=== PATIENT | male | born 1995 | race Caucasian/White ===

== ENCOUNTER 2017-05-05 18:47 | Emergency (ER) | payer BC ==
--- NOTE | 2017-05-05 20:20 | EDM.PDOC ---
[id number] PAIN Time Seen by Provider: 05/05/17 20:05 Source of Information: Reports: Patient History Limitations: Reports: No Limitations - History of Present Illness INITIAL COMMENTS - FREE TEXT/NARRATIVE: 21-year-old male who has had a sore throat for the past week, was seen 4 days ago and a strep was negative. He was placed on Zithromax but has continued to worsen and now has intense swelling on his right pharynx and pain and swelling into the anterior cervical lymph nodes. He claims he's been having fevers off and on. No other symptoms, he is normally healthy. Onset: Gradual Quality: Reports: Ache Severity: Moderate Worsens with: Reports: Other (Much worse with swallowing) Treatments CLIMBING GUIDE: Reports: Acetaminophen, NSAIDS throat Pain Score (Numeric/FACES): 8 headache Pain Score (Numeric/FACES): 8 - Related Data Allergies Allergy/AdvReac Type Severity Reaction Status Date / Time No Known Allergies Allergy Verified 05/05/17 19:58 Home Meds: Home Meds NK [No Known Home Meds] 05/05/17 [History] Past Medical History - Past Health History Medical/Surgical History: Denies Medical/Surgical History Social & Family History - Tobacco Use Smoking Status *Q: Never Smoker - Caffeine Use Caffeine Use: Reports: Coffee, Energy Drinks, Soda, Tea - Recreational Drug Use Recreational Drug Use: No ED ROS ENT - Review of Systems Review Of Systems: See Below Constitutional: Reports: Fever, Chills, Malaise HEENT: Reports: Throat Pain Respiratory: Reports: No Symptoms Cardiovascular: Denies: Chest Pain GI/Abdominal: Denies: Nausea, Vomiting Skin: Reports: No Symptoms Neurological: Reports: No Symptoms Psychiatric: Reports: No Symptoms ED EXAM, ENT - Physical Exam Exam: See Below Exam Limited By: No Limitations General Appearance: Alert, Mild Distress (Looks very uncomfortable) Mouth/Throat: Pharyngeal Erythema, Tonsillar Erythema, Tonsillar Swelling (The entire posterior pharynx is very edematous and swollen, more on the right than left) Neck: Lymphadenopathy (R), Lymphadenopathy (L) Respiratory/Chest: No Respiratory Distress, Lungs Clear Neurological: Alert, Oriented Psychiatric: Normal Affect, Normal Mood Course - Vital Signs Last Recorded V/S: Last Vital Signs Temp 100.6 F 05/05/17 22:56 Pulse 92 05/05/17 22:56 Resp 20 05/05/17 22:56 BP 128/71 05/05/17 22:56 Pulse Ox 95 05/05/17 22:56 - Orders/Labs/Meds Orders: Active Orders 24 hr Category Date Time Status Soft Tissue Neck w Cont [CT] Stat Exams 05/05/17 20:48 Taken Saline Lock Insert [OM.PC] Routine Oth 05/05/17 20:49 Ordered Labs: Laboratory Tests 05/05/17 05/05/17 05/05/17 Range/Units 20:29 20:29 20:29 WBC 11.9 H (4.5-11.0) K/uL RBC 4.98 (4.30-5.90) M/uL Hgb 15.0 (12.0-15.0) g/dL Hct 43.2 (40.0-54.0) % MCV 87 (80-98) fL MCH 30 (27-31) pg MCHC 35 (32-36) % Plt Count 332 (150-400) K/uL Neut % (Auto) 71 H (36-66) % Lymph % (Auto) 11 L (24-44) % [place] % (Auto) 16 H (2-6) % Eos % (Auto) 1 L (2-4) % Baso % (Auto) 1 (0-1) % Sodium 137 L (140-148) mmol/L Potassium 4.2 (3.6-5.2) mmol/L Chloride 100 (100-108) mmol/L Carbon Dioxide 27 (21-32) mmol/L Anion Gap 14.2 H (5.0-14.0) mmol/L BUN 13 (7-18) mg/dL Creatinine 1.0 (0.8-1.3) mg/dL Est Cr Clr Drug Dosing 110.41 mL/min Estimated GFR (MDRD) > 60 (>60) Glucose 94 (74-106) mg/dL Calcium 9.5 (8.5-10.1) mg/dL Total Bilirubin 0.9 (0.2-1.0) mg/dL AST 19 (15-37) U/L ALT 21 (12-78) U/L Alkaline Phosphatase 82 (46-116) U/L Total Protein 8.1 (6.4-8.2) g/dL Albumin 3.6 (3.4-5.0) g/dL Globulin 4.5 H (2.3-3.5) g/dL Albumin/Globulin Ratio 0.8 L (1.2-2.2) Monoscreen Negative (NEGATIVE) Meds: Medications Discontinued Medications Generic Name Dose Route Start Last Admin Trade Name Freq PRN Reason Stop Dose Admin Hydromorphone HCl 0.5 mg 05/05/17 20:53 05/05/17 21:05 Dilaudid IVPUSH 05/05/17 20:54 0.5 mg ONETIME ONE Administration Hydromorphone HCl 1 mg 05/05/17 21:51 05/05/17 22:16 Dilaudid IVPUSH 05/05/17 21:52 1 mg ONETIME ONE Administration Sodium Chloride 100 mls @ 3 mls/sec 05/05/17 21:03 05/05/17 21:36 Normal Saline IV 05/05/17 21:04 3 mls/sec ONETIME ONE Administration Ampicillin Sodium/Sulbactam 100 mls @ 200 mls/hr 05/05/17 21:51 05/05/17 22: 19 Sodium 3 gm/ Sodium Chloride IV 05/05/17 22:20 200 mls/hr ONETIME ONE Administration Iopamidol 100 ml 05/05/17 21:03 05/05/17 21:36 Isovue-300 (61%) IV 05/05/17 21:04 100 ml . DIRECTED PRN Administration RADIOLOGY EXAM Methylprednisolone Sodium Succinate 125 mg 05/05/17 22:14 05/05/17 22:22 Solu-Medrol IVPUSH 05/05/17 22:15 125 mg ONETIME ONE Administration Sodium Chloride 10 ml 05/05/17 20:49 05/05/17 22:22 Saline Flush FLUSH 10 ml ASDIRECTED PRN Administration Keep Vein Open Sodium Chloride 10 ml 05/05/17 21:03 05/05/17 21:36 Saline Flush FLUSH 10 ml ONETIME PRN Administration PER RADIOLOGY PROTOCOL - Re-Assessments/Exams Free Text/Narrative Re-Assessment/Exam: 05/05/17 20:19 A CBC, CMP, and Monospot screen were obtained. 05/06/17 02:35 Monospot was negative, white count was elevated. A CT scan with IV contrast was obtained that showed a peritonsillar abscess on the right side. The patient was given 3 g of Unasyn IV, 125 mg of Solu-Medrol IV, and an ENT consultation through [place] was obtained. It was felt the patient could be treated as an outpatient and will continue to take 60 mg of prednisone daily, Augmentin 800 mg twice daily and was given 10 Percocet to use for pain control. He is to meet Dr. Alas ENT in [place] at 8 AM on Friday or call her sooner if not improving. Departure - Departure Time of Disposition: 00:19 Disposition: Home, Self-Care 01 Condition: Fair Clinical Impression: Peritonsillar abscess - Discharge Information Instructions: Peritonsillar Abscess Referrals: PCP,None [Primary Care Provider] - Forms: ED Department Discharge Care Plan Goals: Take antibiotic twice daily, take 6 pills of prednisone with food in the morning , and use pain medication as prescribed when needed. See Dr. Alas at 8 AM at the ENT clinic on Friday, or call her sooner if worsening or concerns. - My Orders Last 24 Hours: My Active Orders 05/05/17 20:48 Soft Tissue Neck w Cont [CT] Stat 05/05/17 20:49 Saline Lock Insert [OM.PC] Routine - Assessment/Plan Last 24 Hours: My Active Orders 05/05/17 20:48 Soft Tissue Neck w Cont [CT] Stat 05/05/17 20:49 Saline Lock Insert [OM.PC] Routine
[2017-05-05] MEDS ORDERED: HYDROmorphone 0.5 MG/0.5 ML Syringe IVPUSH ONE (20:53)
[2017-05-05] MEDS ORDERED: Iopamidol 612 MG/ML 100 ML Bottle IV PRN (21:03)
[2017-05-05] MEDS ORDERED: Sodium Chloride 0.9% 100 ML IV ONE (21:03)
[2017-05-05] MEDS ORDERED: Sodium Chloride 0.9% 10 ML Syringe FLUSH PRN (21:03)
[2017-05-05] MEDS: Sodium Chloride 0.9% 10 ML Syringe FLUSH PRN ×2 (21:05→22:22)
[2017-05-05] MEDS ORDERED: HYDROmorphone 1 MG/ML Syringe IVPUSH ONE (21:51)
[2017-05-05] MEDS ORDERED: Ampicillin/Sulbactam Na 3 GM in Sodium Chloride 0.9% 100 ML IV ONE (21:51)
[2017-05-05] MEDS ORDERED: methylPREDNISolone Sodium Succinate 125 MG/2 ML SDV IVPUSH ONE (22:14)
[2017-05-05 22:58] VITALS: BP 128/71
== END 2017-05-05 23:50 | disposition home or self-care (01) ==
LOC: JP.ED 18:47
DX: J36 Peritonsillar abscess (principal); R59.0 Localized enlarged lymph nodes
CPT/HCPCS: 36415; 70491; 80053; 85025; 86308; 96365; 96375; 96376; 99284; J0295; J1170; J2930; J7030; J7050; Q9967